=== PATIENT | female | born 1985 | race Caucasian/White ===

== ENCOUNTER 2016-11-04 08:52 | Day surgery (SDC) | payer BC ==
[~2016-11-04] VITALS: Ht 154.9 cm; Wt 109.0 kg
[~2016-11-04 08:52] MED LIST: LACTATED RINGERS 1,000 ML IV SCH; SODIUM CHLORIDE FLUSH 3 ML SYR IV PRN; ceFAZolin 2,000 MG in WATER (STERILE) FOR INJECTION 20 ML IV SCH
[2016-11-04 09:00] VITALS: BP 141/78
[2016-11-04] MEDS ORDERED: BUPIVACAINE/EPINEPHRINE 0.5%-1:200,000 (MARCAINE) 30 ML VIAL INJ ONE (09:09)
[2016-11-04] MEDS ORDERED: ROCURONIUM 50 MG/5 ML (ZEMURON) VIAL IV ONE (09:14)
[2016-11-04] MEDS ORDERED: PROPOFOL 20 ML IV ONE (09:14)
[2016-11-04] MEDS ORDERED: ONDANSETRON 2 MG/ML (Z0FRAN) 2 ML VIAL ONE (09:14)
[2016-11-04] MEDS ORDERED: ALFENTANIL 500 MCG/ML (ALFENTA) 5 ML AMP IV ONE (09:14)
[2016-11-04] MEDS ORDERED: ceFAZolin 1000 MG (ANCEF) VIAL ONE (09:42)
[2016-11-04] MEDS ORDERED: WATER (STERILE) FOR INJECTION 10 ML VIAL ONE (09:42)
[2016-11-04] MEDS ORDERED: ATROPINE SULFATE 1 MG/1 ML SDV IV ONE (09:57)
[2016-11-04] MEDS ORDERED: ALBUTEROL 0.5% NEB SOLUTION 2.5 MG/0.5 ML VIAL INH ONE (09:58)
[2016-11-04] MEDS ORDERED: diphenhydrAMINE 50 MG/ML INJ (BENADRYL) ONE (10:30)
[2016-11-04] MEDS ORDERED: KETOROLAC 60 MG/2 ML (TORADOL) VIAL IM ONE (10:30)
[2016-11-04] MEDS ORDERED: METOCLOPRAMIDE 10 MG/2 ML (REGLAN) VIAL ONE (10:30)
[2016-11-04] MEDS ORDERED: NEOSTIGMINE 1 MG/ML SYRINGE ONE (10:53)
[2016-11-04] MEDS ORDERED: GLYCOPYRROLATE 0.2 MG/ML (ROBINUL) 1 ML VIAL ONE (10:53)
[2016-11-04] MEDS ORDERED: MEPERIDINE 25 MG/ML (DEMEROL) SYRINGE ONE (11:31)
[2016-11-04 11:43] VITALS: BP 161/85
[2016-11-04 12:00] VITALS: BP 155/97
[2016-11-04] MEDS ORDERED: morphine INJ 4 MG/ML 1 ML SYRINGE IV PRN (12:05)
[2016-11-04] MEDS ORDERED: ONDANSETRON 2 MG/ML (Z0FRAN) 2 ML VIAL IV PRN (12:05)
[2016-11-04] MEDS ORDERED: METOCLOPRAMIDE 10 MG/2 ML (REGLAN) VIAL IV PRN (12:05)
[2016-11-04] MEDS ORDERED: KETOROLAC 30 MG/ML (TORADOL) 1 ML VIAL IV PRN (12:05)
[2016-11-04 12:15] VITALS: BP 163/103
[2016-11-04 12:30] VITALS: BP 141/77
[2016-11-04 12:50] VITALS: BP 148/98
== END 2016-11-04 13:08 | disposition home or self-care (01) ==
LOC: ASC 08:52
PROVIDERS: ATTEND Surgery
DX: K80.12 Calculus of gallbladder with acute and chronic cholecystitis without obstruction (principal); J45.909 Unspecified asthma, uncomplicated; E66.9 Obesity, unspecified; Z68.41 Body mass index [BMI] 40.0-44.9, adult; F17.210 Nicotine dependence, cigarettes, uncomplicated
CPT/HCPCS: 47563; 74300; J0461; J0690; J1200; J1885; J2175; J2710; J3490; J7120; Q9967